=== PATIENT | female | born 1945 | race Caucasian/White ===

== ENCOUNTER 2018-01-06 18:25 | Emergency (ER) | payer MEDICARE, OTHER ==
[~2018-01-06] VITALS: Ht 160 cm; Wt 78.0 kg
[2018-01-06] MEDS ORDERED: HYDRALAZINE HCL 20 MG/ML VIAL IV STA (19:32)
[2018-01-06 21:46] VITALS: BP 180/82
== END 2018-01-06 20:41 | disposition home or self-care (01) ==
LOC: FSED 18:25
DX: R07.89 Other chest pain (principal); I10 Essential (primary) hypertension
CPT/HCPCS: 71045; 80053; 82553; 84484; 85025; 85610; 93005; 96374; 99284; J0360; 71046; 99283

== ENCOUNTER 2025-07-01 11:41 | Emergency (ER) | payer MEDICARE, OTHER ==
[~2025-07-01] VITALS: Ht 160 cm; Wt 75.9 kg
[2025-07-01] MEDS ORDERED: CENTRUM SILVER1 EAC8 (12:05)
[2025-07-01] MEDS ORDERED: NYSTATIN1 EAC9 TOP (12:05)
[2025-07-01] MEDS ORDERED: SIMVASTATIN20 MG PO (12:05)
[2025-07-01] MEDS ORDERED: FLONASE ALLERG9.9 ML INH (12:05)
[2025-07-01] MEDS ORDERED: SINEMET 25-1001 EACH PO (12:05)
[2025-07-01] MEDS ORDERED: ARIMIDEX1 MG PO (12:05)
[2025-07-01] MEDS ORDERED: AMLODIPINE BESY10 MG PO (12:05)
[2025-07-01] MEDS ORDERED: TYLENOL325 MG PO (12:31)
[2025-07-01] MEDS ORDERED: AMOX TR-K CLV1 EAC2 PO (12:31)
[2025-07-01] MEDS: CEFTRIAXONE 1 GM VIAL IM ONE (12:44)
[2025-07-01 12:55] VITALS: PULSE 95; RESP 16; TEMP 99.3; O2SAT 97
== END 2025-07-01 12:55 | disposition home or self-care (01) ==
LOC: FSED 11:50
DX: S61.431A Puncture wound without foreign body of right hand, initial encounter (principal); S60.511A Abrasion of right hand, initial encounter; W55.01XA Bitten by cat, initial encounter; W55.03XA Scratched by cat, initial encounter; Y92.89 Other specified places as the place of occurrence of the external cause; I10 Essential (primary) hypertension; E78.5 Hyperlipidemia, unspecified; G20.A1 Parkinson's disease without dyskinesia, without mention of fluctuations; K21.9 Gastro-esophageal reflux disease without esophagitis; Z85.3 Personal history of malignant neoplasm of breast
CPT/HCPCS: 96372; 99283; J0696